=== PATIENT | male | born 1940 | race Caucasian/White ===

== ENCOUNTER 2017-02-07 16:36 | Emergency (ER) | payer MEDICARE, BC ==
[2017-02-07] MEDS ORDERED: HYDROMORPHONE 1 MG/ML SYRINGE IV PRN (16:51)
[2017-02-07] MEDS ORDERED: SODIUM CHLORIDE 0.9% 1000ML 1,000 ML IV SCH (17:00)
[2017-02-07] MEDS ORDERED: HYDROMORPHONE HCL 2 MG/ML SOL ONE (17:06)
[2017-02-07 17:21] LABS: ALBUMIN 3.2 gm/dl (3.4-5.0); CALCIUM 8.4 mg/dl (8.5-10.1); POTASSIUM 3.8 mMol/L (3.5-5.1)
[2017-02-07 17:22] LABS: BASOPHILS % (AUTO) 1 % (0-3); EOSINOPHILS % (AUTO) 2 % (0-9); HEMATOCRIT 36 % (39-53); MEAN CORPUSCULAR HGB CONC 34.6 gm/dl (32.0-36.0); MONOCYTES % (AUTO) 10.8 % (0-12); NEUTROPHILS % (AUTO) 72.8 % (37-80)
[2017-02-07 17:28] LABS: MEAN CORPUSCULAR VOLUME 104 fL (80-100)
[2017-02-07 17:35] LABS: ANISOCYTOSIS SLIGHT AMT
[2017-02-07] MEDS ORDERED: HYDROMORPHONE 1 MG/ML SYRINGE ONE (18:11)
[2017-02-07] MEDS ORDERED: HYDROMORPHONE HCL 2 MG/ML SOL IV ONE (18:11)
[2017-02-07 18:32] LABS: APPEARANCE,URINE Clear; BILIRUBIN,URINE NEGATIVE (NEGATIVE); COLOR,URINE Yellow; GLUCOSE, URINE (UA) NEGATIVE (NEGATIVE); KETONES,URINE NEGATIVE (NEGATIVE); LEUKOCYTE ESTERASE ,URINE NEGATIVE (NEGATIVE); NITRATE,URINE NEGATIVE (NEGATIVE); OCCULT BLOOD,URINE TRACE INTACT (NEG-TRACE); PH,URINE 5.5; UROBILINOGEN,URINE 0.2 (0.2-1.0 EU)
[2017-02-07 18:51] LABS: RBC,URINE 0-2 (0-3AV/HPF); WBC,URINE 0-1 (0-5AV/HPF)
[2017-02-07 18:54] VITALS: TEMP 99.9
[2017-02-07 20:42] VITALS: BP 130/78; PULSE 70; RESP 16; O2SAT 96
== END 2017-02-07 19:53 | disposition home or self-care (01) | DRG 552 ==
LOC: ED 16:36
DX: M54.9 Dorsalgia, unspecified (principal); I50.9 Heart failure, unspecified; I48.91 Unspecified atrial fibrillation; Z86.79 Personal history of other diseases of the circulatory system; Z98.890 Other specified postprocedural states
CPT/HCPCS: 71270; 74170; 80053; 81001; 85025; 85610; 85730; 96365; 96374; 99285; 99291; J1170; Q9967

== ENCOUNTER 2017-02-10 09:48 | Emergency (ER) | payer MEDICARE, BC ==
[2017-02-10 10:20] VITALS: RESP 16; TEMP 98.3
[2017-02-10 10:29] LABS: CALCIUM 8.1 mg/dl (8.5-10.1); POTASSIUM 3.9 mMol/L (3.5-5.1)
[2017-02-10] MEDS ORDERED: SODIUM CHLORIDE 0.9% 500 ML 500 ML IV ONE (11:01)
[2017-02-10 12:55] VITALS: BP 119/74; PULSE 74; O2SAT 99
== END 2017-02-10 11:35 | disposition home or self-care (01) | DRG 552 ==
LOC: ED 09:48
DX: M54.9 Dorsalgia, unspecified (principal); K59.00 Constipation, unspecified; Z98.890 Other specified postprocedural states
CPT/HCPCS: 36415; 80048; 96365; 99282; 99283

== ENCOUNTER 2017-02-12 20:18 | Observation (INO) | payer MEDICARE, BC ==
[2017-02-12] MEDS ORDERED: SODIUM CHLORIDE 0.9% 1000ML 1,000 ML IV ONE (20:43)
[2017-02-12] MEDS ORDERED: ONDANSETRON HCL 4 MG/2 ML 4 MG in SODIUM CHLORIDE 0.9% 100 ML 100 ML IV ONE (20:44)
[2017-02-12] MEDS: SODIUM CHLORIDE 0.9% FLUSH 10 ML SOL IV PRN (20:45)
[2017-02-12] MEDS ORDERED: ONDANSETRON HCL 4 MG/2 ML SOL ONE (20:50)
[2017-02-12] MEDS ORDERED: ONDANSETRON HCL 4 MG/2 ML SOL IV ONE (20:50)
[2017-02-12 20:52] LABS: BASOPHILS % (AUTO) 1 % (0-3); EOSINOPHILS % (AUTO) 2 % (0-9); HEMATOCRIT 32 % (39-53); MEAN CORPUSCULAR HGB CONC 37.3 gm/dl (32.0-36.0); MONOCYTES % (AUTO) 7.4 % (0-12); NEUTROPHILS % (AUTO) 85.1 % (37-80)
[2017-02-12 20:54] LABS: MEAN CORPUSCULAR VOLUME 101 fL (80-100)
[2017-02-12 21:00] LABS: NORMAL RBCS PRESENT
[2017-02-12 21:04] LABS: CALCIUM 8.8 mg/dl (8.5-10.1); POTASSIUM 3.8 mMol/L (3.5-5.1)
[2017-02-12] MEDS ORDERED: TRAMADOL HYDROCHLORIDE 50 MG TAB PO ONE (21:56)
[2017-02-12] MEDS ORDERED: TRAMADOL HYDROCHLORIDE 50 MG TAB ONE (21:57)
[2017-02-12] MEDS ORDERED: TEMAZEPAM 15MG 15 MG CAP PO PRN (22:03)
[2017-02-12] MEDS ORDERED: FLEET ENEMA PR PRN (22:05)
[2017-02-12] MEDS: SODIUM CHLORIDE 0.9% 1000ML 1,000 ML IV SCH (23:15)
[2017-02-13] MEDS ORDERED: PANTOPRAZOLE SODIUM 40 MG ECT PO PRN
[2017-02-13] MEDS: TRAMADOL HYDROCHLORIDE 50 MG TAB PO PRN ×3 (06:07→19:38)
[2017-02-13] MEDS ORDERED: MAGNESIUM CITRATE SOL PO ONE (09:00)
[2017-02-13] MEDS ORDERED: OMEPRAZOLE 20 MG CAPSULE PO PRN (09:00)
[2017-02-13] MEDS ORDERED: SENNOSIDES A AND B 8.6 MG TAB PO SCH (09:00)
[2017-02-13] MEDS: LISINOPRIL 5 MG TAB PO SCH (09:04)
[2017-02-13] MEDS: CHOLECALCIFEROL 1,000 IU TAB PO SCH (09:05)
[2017-02-13] MEDS: METOPROLOL TARTRATE 25 MG TAB PO SCH ×2 (09:05→20:48)
[2017-02-13] MEDS: PREDNISONE 5 MG TAB PO SCH (09:06)
[2017-02-13] MEDS: ASPIRIN 81 MG CHEWABLE CTB PO SCH (09:07)
[2017-02-13] MEDS: SODIUM CHLORIDE 0.9% 1000ML 1,000 ML IV SCH ×2 (09:20→19:43)
[2017-02-13] MEDS: SERTRALINE HYDROCHLORIDE 50 MG TAB PO SCH (09:59)
[2017-02-13] MEDS: SODIUM CHLORIDE 0.9% FLUSH 10 ML SOL IV PRN (18:09)
[2017-02-13] MEDS ORDERED: ACETAMINOPHEN 500 MG 500 MG TAB PO SCH (21:00)
[2017-02-14] MEDS: SODIUM CHLORIDE 0.9% 1000ML 1,000 ML IV SCH (04:59)
[2017-02-14] MEDS: TRAMADOL HYDROCHLORIDE 50 MG TAB PO PRN ×2 (06:46→12:36)
[2017-02-14] MEDS ORDERED: TEMAZEPAM 15MG 15 MG CAP PO ONE (07:00)
[2017-02-14] MEDS ORDERED: DIAZEPAM 5 MG TAB PO ONE (07:00)
[2017-02-14 07:14] LABS: CALCIUM 7.9 mg/dl (8.5-10.1); POTASSIUM 4.1 mMol/L (3.5-5.1)
[2017-02-14 07:45] VITALS: BP 140/68; RESP 38; TEMP 97.6
[2017-02-14] MEDS ORDERED: PATIENT EDUCATION 1 MISC PRN (08:18)
[2017-02-14] MEDS: METOPROLOL TARTRATE 25 MG TAB PO SCH (08:51)
[2017-02-14] MEDS: PREDNISONE 5 MG TAB PO SCH (08:52)
[2017-02-14] MEDS: ASPIRIN 81 MG CHEWABLE CTB PO SCH (08:52)
[2017-02-14] MEDS: CHOLECALCIFEROL 1,000 IU TAB PO SCH (08:52)
[2017-02-14] MEDS: LISINOPRIL 5 MG TAB PO SCH (08:53)
[2017-02-14] MEDS: SERTRALINE HYDROCHLORIDE 50 MG TAB PO SCH (08:53)
[2017-02-14] MEDS: SODIUM CHLORIDE 0.9% FLUSH 10 ML SOL IV PRN (08:57)
[2017-02-14 13:37] VITALS: PULSE 73; O2SAT 92
[2017-02-14] MEDS ORDERED: PNEUMOCOCCAL VACCINE 0.5 ML SOL IM ONE (16:26)
[2017-02-14] MEDS ORDERED: SODIUM CHLORIDE 0.9% FLUSH 10 ML SOL IV SCH (17:00)
== END 2017-02-14 17:20 | disposition home or self-care (01) | DRG 552 ==
LOC: ED 20:18 → ACUTE CARE 21:59
PROVIDERS: ADMIT Family Medicine; ATTEND Family Medicine
DX: S22.080A Wedge compression fracture of T11-T12 vertebra, initial encounter for closed fracture (principal); I50.9 Heart failure, unspecified; Z94.0 Kidney transplant status; K59.00 Constipation, unspecified; R09.02 Hypoxemia
CPT/HCPCS: 36415; 72148; 80048; 80053; 85025; 90732; 96365; 96374; 99218; 99285; J2405; A6232

== ENCOUNTER 2017-02-16 04:07 | Inpatient (IN) | payer MEDICARE, BC ==
[2017-02-16] MEDS ORDERED: SODIUM CHLORIDE 0.9% 1000ML 1,000 ML IV ONE (05:00)
[2017-02-16 05:06] LABS: BASOPHILS % (AUTO) 1 % (0-3); EOSINOPHILS % (AUTO) 3 % (0-9); HEMATOCRIT 27 % (39-53); MEAN CORPUSCULAR HGB CONC 36.5 gm/dl (32.0-36.0); NEUTROPHILS % (AUTO) 76.2 % (37-80)
[2017-02-16 05:17] LABS: APPEARANCE,URINE Slightly Cloudy; BILIRUBIN,URINE 1+ (NEGATIVE); COLOR,URINE Dark yellow; GLUCOSE, URINE (UA) NEGATIVE (NEGATIVE); KETONES,URINE NEGATIVE (NEGATIVE); LEUKOCYTE ESTERASE ,URINE NEGATIVE (NEGATIVE); NITRATE,URINE NEGATIVE (NEGATIVE); OCCULT BLOOD,URINE 3+ (NEG-TRACE); PH,URINE 5.5; UROBILINOGEN,URINE 0.2 (0.2-1.0 EU)
[2017-02-16 05:21] LABS: ALBUMIN 2.5 gm/dl (3.4-5.0); CALCIUM 8.2 mg/dl (8.5-10.1); POTASSIUM 3.9 mMol/L (3.5-5.1)
[2017-02-16 05:30] LABS: MEAN CORPUSCULAR VOLUME 102 fL (80-100)
[2017-02-16 05:32] LABS: ANISOCYTOSIS SLIGHT
[2017-02-16 05:34] LABS: ICTOTEST,URINE NEGATIVE (NEGATIVE)
[2017-02-16 05:35] LABS: RBC,URINE 60-65 (0-3AV/HPF); WBC,URINE 0-1 (0-5AV/HPF)
[2017-02-16] MEDS ORDERED: ENOXAPARIN 30 MG SOL SC SCH (06:30)
[2017-02-16] MEDS: SODIUM CHLORIDE 0.9% 1000ML 1,000 ML IV SCH (07:31)
[2017-02-16] MEDS: METOPROLOL TARTRATE 5 MG/5 ML SOL IV SCH ×3 (07:38→18:33)
[2017-02-16] MEDS: ASPIRIN 81 MG CHEWABLE CTB PO SCH (09:44)
[2017-02-16] MEDS: SERTRALINE HYDROCHLORIDE 50 MG TAB PO SCH (09:45)
[2017-02-16] MEDS: ENOXAPARIN 40 MG SOL SC SCH (09:45)
[2017-02-16] MEDS: ONDANSETRON HCL 4 MG/2 ML SOL IV PRN (11:02)
[2017-02-16] MEDS ORDERED: ACETAMINOPHEN 650 MG SUP PR PRN (11:48)
[2017-02-16] MEDS: TEMAZEPAM 15MG 15 MG CAP PO PRN (21:22)
[2017-02-17] MEDS: METOPROLOL TARTRATE 5 MG/5 ML SOL IV SCH ×4 (02:00→18:25)
[2017-02-17] MEDS: SODIUM CHLORIDE 0.9% 1000ML 1,000 ML IV SCH ×2 (02:33→22:33)
[2017-02-17] MEDS ORDERED: MAGNESIUM CITRATE SOL PO PRN (07:50)
[2017-02-17] MEDS: ASPIRIN 81 MG CHEWABLE CTB PO SCH (08:26)
[2017-02-17] MEDS: SERTRALINE HYDROCHLORIDE 50 MG TAB PO SCH (08:26)
[2017-02-17] MEDS: ENOXAPARIN 40 MG SOL SC SCH (08:26)
[2017-02-17] MEDS: PREDNISONE 5 MG TAB PO SCH (08:26)
[2017-02-17] MEDS ORDERED: ALBUTEROL NEB SOL 2.5MG/3ML 1 VIAL SOL NEB PRN (11:38)
[2017-02-18] MEDS: TEMAZEPAM 15MG 15 MG CAP PO PRN ×2 (00:20→21:37)
[2017-02-18] MEDS: METOPROLOL TARTRATE 5 MG/5 ML SOL IV SCH ×2 (00:20→06:31)
[2017-02-18] MEDS: ACETAMINOPHEN 325 MG PO PRN ×3 (00:49→21:34)
[2017-02-18 07:12] LABS: CALCIUM 8.6 mg/dl (8.5-10.1); POTASSIUM 4.3 mMol/L (3.5-5.1)
[2017-02-18] MEDS: SERTRALINE HYDROCHLORIDE 50 MG TAB PO SCH (09:01)
[2017-02-18] MEDS: ASPIRIN 81 MG CHEWABLE CTB PO SCH (09:01)
[2017-02-18] MEDS: PREDNISONE 5 MG TAB PO SCH (09:01)
[2017-02-18] MEDS: METOPROLOL TARTRATE 25 MG TAB PO SCH ×2 (09:43→21:34)
[2017-02-18] MEDS: APAP/HYDROCODONE 325/5 TAB PO PRN ×3 (09:43→19:05)
[2017-02-18] MEDS: LISINOPRIL 5 MG TAB PO SCH (09:43)
[2017-02-18] MEDS: ENOXAPARIN 40 MG SOL SC SCH (09:44)
[2017-02-19] MEDS: APAP/HYDROCODONE 325/5 TAB PO PRN ×5 (01:44→21:14)
[2017-02-19] MEDS: ACETAMINOPHEN 325 MG PO PRN ×2 (02:51→10:42)
[2017-02-19 07:41] LABS: ALBUMIN 2.2 gm/dl (3.4-5.0); CALCIUM 8.4 mg/dl (8.5-10.1); POTASSIUM 4.1 mMol/L (3.5-5.1)
[2017-02-19 08:04] LABS: BASOPHILS % (AUTO) 1 % (0-3); EOSINOPHILS % (AUTO) 1 % (0-9); HEMATOCRIT 31 % (39-53); MEAN CORPUSCULAR HGB CONC 32.8 gm/dl (32.0-36.0); MONOCYTES % (AUTO) 12.6 % (0-12); NEUTROPHILS % (AUTO) 75.7 % (37-80)
[2017-02-19 08:10] LABS: MEAN CORPUSCULAR VOLUME 110 fL (80-100)
[2017-02-19 08:43] LABS: ANISOCYTOSIS MOD AMT; OVALOCYTES PRESENT
[2017-02-19] MEDS: LISINOPRIL 5 MG TAB PO SCH (08:46)
[2017-02-19] MEDS: METOPROLOL TARTRATE 25 MG TAB PO SCH ×2 (08:46→21:14)
[2017-02-19] MEDS: ASPIRIN 81 MG CHEWABLE CTB PO SCH (08:46)
[2017-02-19] MEDS: SERTRALINE HYDROCHLORIDE 50 MG TAB PO SCH (08:46)
[2017-02-19] MEDS: PREDNISONE 5 MG TAB PO SCH (08:46)
[2017-02-19] MEDS: ONDANSETRON HCL 4 MG/2 ML SOL IV PRN (08:56)
[2017-02-19] MEDS: ENOXAPARIN 40 MG SOL SC SCH (08:56)
[2017-02-19 17:01] VITALS: TEMP 98.1
[2017-02-19] MEDS: TEMAZEPAM 15MG 15 MG CAP PO PRN (21:14)
[2017-02-20] MEDS: APAP/HYDROCODONE 325/5 TAB PO PRN ×3 (02:12→14:48)
[2017-02-20] MEDS: ACETAMINOPHEN 325 MG PO PRN (05:28)
[2017-02-20 06:40] VITALS: BP 118/67; PULSE 71; RESP 18; O2SAT 92
[2017-02-20] MEDS: METOPROLOL TARTRATE 25 MG TAB PO SCH (08:37)
[2017-02-20] MEDS: SERTRALINE HYDROCHLORIDE 50 MG TAB PO SCH (08:38)
[2017-02-20] MEDS: ASPIRIN 81 MG CHEWABLE CTB PO SCH (08:38)
[2017-02-20] MEDS: LISINOPRIL 5 MG TAB PO SCH (08:38)
[2017-02-20] MEDS: PREDNISONE 5 MG TAB PO SCH (08:38)
[2017-02-20] MEDS: ENOXAPARIN 40 MG SOL SC SCH (08:49)
== END 2017-02-20 15:05 | disposition home or self-care (01) | DRG 389 ==
LOC: ED 04:07 → ACUTE CARE 06:06
PROVIDERS: ADMIT Family Medicine; ATTEND Family Medicine
DX: K56.7 Ileus, unspecified (principal); I50.42 Chronic combined systolic (congestive) and diastolic (congestive) heart failure; Z94.0 Kidney transplant status; Z79.899 Other long term (current) drug therapy; R06.02 Shortness of breath; S22.080D Wedge compression fracture of T11-T12 vertebra, subsequent encounter for fracture with routine healing; Z98.890 Other specified postprocedural states
CPT/HCPCS: 36415; 71010; 74000; 74020; 80048; 80053; 81001; 85025; 94150; 94760; 96365; 99222; 99284; J1650; J2405

== ENCOUNTER 2017-02-21 09:20 | Inpatient (IN) | payer MEDICARE, BC ==
[2017-02-21] MEDS ORDERED: SODIUM CHLORIDE 0.9% 1000ML 1,000 ML IV ONE (09:45)
[2017-02-21] MEDS ORDERED: METOPROLOL TARTRATE 25 MG TAB PO ONE (10:50)
[2017-02-21] MEDS ORDERED: PREDNISONE 5 MG TAB PO ONE (10:50)
[2017-02-21] MEDS ORDERED: METOPROLOL TARTRATE 25 MG TAB ONE (10:54)
[2017-02-21] MEDS ORDERED: PREDNISONE 5 MG TAB ONE (10:54)
[2017-02-21] MEDS ORDERED: SERTRALINE HYDROCHLORIDE 50 MG TAB ONE (10:56)
[2017-02-21] MEDS ORDERED: LISINOPRIL 5 MG TAB ONE (10:56)
[2017-02-21] MEDS ORDERED: LISINOPRIL 5 MG TAB PO ONE (11:00)
[2017-02-21] MEDS ORDERED: SERTRALINE HYDROCHLORIDE 50 MG TAB PO ONE (11:00)
[2017-02-21] MEDS ORDERED: APAP/HYDROCODONE 325/5 TAB ONE (14:52)
[2017-02-21] MEDS ORDERED: APAP/HYDROCODONE 325/5 TAB PO ONE (15:00)
[2017-02-21] MEDS ORDERED: OMEPRAZOLE 20 MG CAPSULE PO PRN (17:55)
[2017-02-21] MEDS: APAP/HYDROCODONE 325/5 TAB PO PRN (19:59)
[2017-02-21] MEDS: SENNOSIDES A AND B 8.6 MG TAB PO SCH (19:59)
[2017-02-21] MEDS: METOPROLOL TARTRATE 25 MG TAB PO SCH (19:59)
[2017-02-21] MEDS: ACETAMINOPHEN 500 MG 500 MG TAB PO SCH (20:00)
[2017-02-21] MEDS: SODIUM CHLORIDE 0.9% FLUSH 10 ML SOL IV SCH (22:00)
[2017-02-21] MEDS ORDERED: ONDANSETRON HCL 4 MG/2 ML SOL IV PRN (22:19)
[2017-02-21] MEDS: TEMAZEPAM 15MG 15 MG CAP PO PRN (22:43)
[2017-02-22] MEDS: APAP/HYDROCODONE 325/5 TAB PO PRN ×4 (02:14→20:30)
[2017-02-22] MEDS: SODIUM CHLORIDE 0.9% FLUSH 10 ML SOL IV SCH ×3 (06:05→22:00)
[2017-02-22] MEDS: METOPROLOL TARTRATE 25 MG TAB PO SCH ×2 (09:31→20:30)
[2017-02-22] MEDS: SERTRALINE HYDROCHLORIDE 50 MG TAB PO SCH (09:31)
[2017-02-22] MEDS: PREDNISONE 5 MG TAB PO SCH (09:31)
[2017-02-22] MEDS: LISINOPRIL 5 MG TAB PO SCH (09:31)
[2017-02-22] MEDS: ASPIRIN 81 MG CHEWABLE CTB PO SCH (09:31)
[2017-02-22] MEDS: SENNOSIDES A AND B 8.6 MG TAB PO SCH ×2 (09:31→20:30)
[2017-02-22] MEDS: CHOLECALCIFEROL 1,000 IU TAB PO SCH (09:32)
[2017-02-22] MEDS: ACETAMINOPHEN 500 MG 500 MG TAB PO SCH (20:30)
[2017-02-22] MEDS: TEMAZEPAM 15MG 15 MG CAP PO PRN (20:46)
[2017-02-23] MEDS: APAP/HYDROCODONE 325/5 TAB PO PRN ×3 (02:31→20:47)
[2017-02-23] MEDS: SODIUM CHLORIDE 0.9% FLUSH 10 ML SOL IV SCH ×3 (06:29→21:17)
[2017-02-23] MEDS ORDERED: OXYCODONE HYDROCHLORIDE 5 MG TAB PO ONE (06:46)
[2017-02-23] MEDS: LISINOPRIL 5 MG TAB PO SCH (08:39)
[2017-02-23] MEDS: PREDNISONE 5 MG TAB PO SCH (08:39)
[2017-02-23] MEDS: ASPIRIN 81 MG CHEWABLE CTB PO SCH (08:39)
[2017-02-23] MEDS: CHOLECALCIFEROL 1,000 IU TAB PO SCH (08:40)
[2017-02-23] MEDS: SERTRALINE HYDROCHLORIDE 50 MG TAB PO SCH (08:40)
[2017-02-23] MEDS: METOPROLOL TARTRATE 25 MG TAB PO SCH ×2 (08:44→20:45)
[2017-02-23] MEDS: SENNOSIDES A AND B 8.6 MG TAB PO SCH ×2 (08:44→20:45)
[2017-02-23] MEDS ORDERED: FENTANYL 25 MCG PATCH TDM TD SCH (11:45)
[2017-02-23] MEDS ORDERED: PANTOPRAZOLE SODIUM 40 MG ECT PO PRN (13:16)
[2017-02-23] MEDS: PREDNISONE 20 MG TAB PO SCH (13:28)
[2017-02-23 15:41] VITALS: RESP 20
[2017-02-23] MEDS: ACETAMINOPHEN 500 MG 500 MG TAB PO SCH (20:44)
[2017-02-24] MEDS: TEMAZEPAM 15MG 15 MG CAP PO PRN (01:03)
[2017-02-24] MEDS: SODIUM CHLORIDE 0.9% FLUSH 10 ML SOL IV SCH (05:58)
[2017-02-24] MEDS: METOPROLOL TARTRATE 25 MG TAB PO SCH (08:29)
[2017-02-24] MEDS: SENNOSIDES A AND B 8.6 MG TAB PO SCH (08:29)
[2017-02-24] MEDS: ASPIRIN 81 MG CHEWABLE CTB PO SCH (08:29)
[2017-02-24] MEDS: PREDNISONE 5 MG TAB PO SCH (08:29)
[2017-02-24] MEDS: PREDNISONE 20 MG TAB PO SCH (08:29)
[2017-02-24] MEDS: SERTRALINE HYDROCHLORIDE 50 MG TAB PO SCH (08:30)
[2017-02-24] MEDS: LISINOPRIL 5 MG TAB PO SCH (08:30)
[2017-02-24] MEDS: CHOLECALCIFEROL 1,000 IU TAB PO SCH (08:30)
[2017-02-24] MEDS: APAP/HYDROCODONE 325/5 TAB PO PRN ×2 (08:30→13:00)
[2017-02-24 08:48] VITALS: PULSE 71; TEMP 97
[2017-02-24] MEDS ORDERED: LIDOCAINE 5% PATCH 1 PATCH TDM TOP SCH (09:00)
[2017-02-24 14:07] VITALS: BP 130/70; O2SAT 94
== END 2017-02-24 14:55 | DRG 195 ==
LOC: ED 09:20 → UNDOADMIN 13:55 → ACUTE CARE 13:55
PROVIDERS: ADMIT Family Medicine; ATTEND Family Medicine
DX: J18.9 Pneumonia, unspecified organism (principal); R53.1 Weakness; S22.080D Wedge compression fracture of T11-T12 vertebra, subsequent encounter for fracture with routine healing
CPT/HCPCS: 36415; 71020; 74000; 85018; 96365; 99222; 99231; 99284; J2405

== ENCOUNTER 2017-03-11 10:42 | Emergency (ER) | payer MEDICARE, BC ==
[2017-03-11] MEDS ORDERED: SODIUM CHLORIDE 0.9% 1000ML 1,000 ML IV ONE (11:00)
[2017-03-11] MEDS ORDERED: ONDANSETRON HCL 4 MG/2 ML SOL IV ONE (11:00)
[2017-03-11] MEDS ORDERED: FENTANYL 100MCG/2ML SOL IV ONE (11:00)
[2017-03-11] MEDS ORDERED: ONDANSETRON HCL 4 MG/2 ML SOL ONE (11:02)
[2017-03-11] MEDS ORDERED: FENTANYL 100MCG/2ML SOL ONE (11:02)
[2017-03-11 11:22] LABS: HEMATOCRIT 38 % (39-53); MEAN CORPUSCULAR HGB CONC 32.2 gm/dl (32.0-36.0)
[2017-03-11 11:23] VITALS: RESP 20; TEMP 97.8
[2017-03-11 11:25] LABS: MEAN CORPUSCULAR VOLUME 106 fL (80-100)
[2017-03-11 11:36] LABS: BASOPHILS % (MANUAL) 1 % (0-3); EOSINOPHILS % (MANUAL) 1 % (0-9); LYMPHOCYTES % (MANUAL) 14 % (10-50)
[2017-03-11 11:37] LABS: ANISOCYTOSIS SLIGHT AMT
[2017-03-11 11:42] VITALS: BP 121/72; PULSE 66; O2SAT 100
[2017-03-11 11:42] LABS: ALBUMIN 3.2 gm/dl (3.4-5.0); CALCIUM 8.9 mg/dl (8.5-10.1); POTASSIUM 3.9 mMol/L (3.5-5.1)
[2017-03-11] MEDS ORDERED: HYDROMORPHONE 1 MG/ML SYRINGE IV ONE (11:50)
[2017-03-11] MEDS ORDERED: HYDROMORPHONE 1 MG/ML SYRINGE ONE (11:51)
== END 2017-03-11 14:00 | disposition home or self-care (01) | DRG 392 ==
LOC: ED 10:42
DX: R10.13 Epigastric pain (principal); R11.2 Nausea with vomiting, unspecified
CPT/HCPCS: 36415; 74020; 80053; 85007; 85027; 99284; J2405; J3010; J1170

== ENCOUNTER 2017-04-02 09:57 | Day surgery (SDC) | payer MEDICARE, BC ==
[2017-04-02] MEDS ORDERED: PROPOFOL 500 MG/50 ML EMU IV ONE (10:39)
[2017-04-02] MEDS ORDERED: LIDOCAINE HCL 1% MPF SOL ONE (11:36)
[2017-04-02 12:52] VITALS: PULSE 62; O2SAT 96
[2017-04-02 13:17] VITALS: BP 115/78; RESP 94; TEMP 97.1
== END 2017-04-02 13:45 | disposition home or self-care (01) | DRG 392 ==
LOC: SURG 09:57
PROVIDERS: ATTEND Surgery
DX: R10.13 Epigastric pain (principal); D12.2 Benign neoplasm of ascending colon; K59.00 Constipation, unspecified; R63.4 Abnormal weight loss; K57.30 Diverticulosis of large intestine without perforation or abscess without bleeding
CPT/HCPCS: J2001; J2704

== ENCOUNTER → 2017-06-04 | Day surgery (SDC) | payer MEDICARE, BC ==
[2017-04-02 12:52] VITALS: O2SAT 96
[~2017-06-04] MED LIST: BUPIVACAINE HCL 0.25% MPF 10 ML SOL INFIL ONE; TRIAMCINOLONE ACETONIDE 40 MG/ML SUS ONE
[2017-06-04 11:58] VITALS: TEMP 98.3
[2017-06-04 13:13] VITALS: BP 131/85; PULSE 81; RESP 24
== END | disposition home or self-care (01) | DRG 951 ==
LOC: SURG 11:37
PROVIDERS: ATTEND Nurse Anesthetist, Certified Registered
DX: Z53.9 Procedure and treatment not carried out, unspecified reason (principal)
CPT/HCPCS: J3300

== ENCOUNTER 2017-06-11 10:45 | Day surgery (SDC) | payer MEDICARE, BC ==
[2017-06-11] MEDS ORDERED: DIAZEPAM 5 MG TAB ONE (11:04)
[2017-06-11] MEDS ORDERED: TRIAMCINOLONE ACETONIDE 40 MG/ML SUS ONE (11:21)
[2017-06-11] MEDS ORDERED: BUPIVACAINE HCL 0.25% MPF 10 ML SOL INFIL ONE (11:21)
[2017-06-11] MEDS ORDERED: SODIUM CHLORIDE 0.9% FLUSH 10 ML SOL IV ONE (11:25)
[2017-06-11 12:02] VITALS: BP 121/77; PULSE 54; RESP 20; TEMP 97.4; O2SAT 97
== END 2017-06-11 12:20 | disposition home or self-care (01) | DRG 552 ==
LOC: SURG 10:45
PROVIDERS: ATTEND Nurse Anesthetist, Certified Registered
DX: M48.062 Spinal stenosis, lumbar region with neurogenic claudication (principal)
CPT/HCPCS: J3300

== ENCOUNTER 2017-07-30 14:08 | Day surgery (SDC) | payer MEDICARE, BC ==
[2017-07-30 14:53] VITALS: BP 118/71; PULSE 57; RESP 16; TEMP 96.6; O2SAT 99
== END 2017-07-30 15:10 | disposition home or self-care (01) | DRG 552 ==
LOC: SURG 14:08
PROVIDERS: ATTEND Nurse Anesthetist, Certified Registered
DX: M48.062 Spinal stenosis, lumbar region with neurogenic claudication (principal)

== ENCOUNTER 2017-08-14 10:33 | Day surgery (SDC) | payer MEDICARE, BC ==
[2017-08-14 11:08] VITALS: RESP 16; TEMP 97.6
[2017-08-14] MEDS ORDERED: DIAZEPAM 5 MG TAB ONE (11:19)
[2017-08-14] MEDS ORDERED: DEXAMETHASONE SOD PHOS PF 10 MG/ML SOL IJ ONE (11:49)
[2017-08-14] MEDS ORDERED: BUPIVACAINE HCL 0.25% MPF 10 ML SOL INFIL ONE (11:49)
[2017-08-14 12:16] VITALS: BP 103/73; PULSE 53; O2SAT 94
== END 2017-08-14 12:35 | disposition home or self-care (01) | DRG 552 ==
LOC: SURG 10:33
PROVIDERS: ATTEND Nurse Anesthetist, Certified Registered
DX: M54.5 Low back pain (principal); M54.16 Radiculopathy, lumbar region
CPT/HCPCS: A9270-GY; J1100

== ENCOUNTER 2017-09-19 20:43 | Emergency (ER) | payer MEDICARE, BC ==
[2017-09-19 21:17] VITALS: BP 142/91; PULSE 62; RESP 20; TEMP 97.7; O2SAT 96
[2017-09-19] MEDS ORDERED: ALPRAZOLAM 0.25 MG TAB ONE (22:43)
[2017-09-19] MEDS ORDERED: ALPRAZOLAM 0.25 MG TAB PO SCH (22:45)
== END 2017-09-19 22:49 | disposition home or self-care (01) | DRG 204 ==
LOC: ED 20:43
DX: R06.02 Shortness of breath (principal); F41.9 Anxiety disorder, unspecified; T40.2X5A Adverse effect of other opioids, initial encounter; R45.1 Restlessness and agitation
CPT/HCPCS: 99282; A9270-GY

== ENCOUNTER 2018-05-28 11:11 | Inpatient (IN) | payer MEDICARE, BC ==
[2018-05-28 11:41] LABS: BASOPHILS % (AUTO) 1 % (0-3); EOSINOPHILS % (AUTO) 1 % (0-9); HEMATOCRIT 38 % (39-53); LYMPHOCYTES % (AUTO) 6.1 % (10-50); MEAN CORPUSCULAR HEMOGLOBIN 33.4 pg (27.0-32.0); MEAN CORPUSCULAR HGB CONC 31.5 gm/dl (32.0-36.0); NEUTROPHILS % (AUTO) 87.9 % (37-80)
[2018-05-28 11:42] LABS: MEAN CORPUSCULAR VOLUME 106 fL (80-100)
[2018-05-28 11:47] LABS: INR 1.07 (0.86-1.12)
[2018-05-28 11:54] LABS: ALBUMIN 3.8 gm/dl (3.4-5.0); ALKALINE PHOSPHATASE 90 IU/L (46-116); ALT 27 IU/L (14-63); AST 35 IU/L (15-37); BLOOD UREA NITROGEN 30 mg/dl (7-18); CALCIUM 8.6 mg/dl (8.5-10.1); CARBON DIOXIDE 28.1 mEq/L (21-32); CHLORIDE 103 mMol/L (98-107); CREATININE 1.26 mg/dl (0.80-1.30); GLUCOSE 107 mg/dl (74-106); SODIUM 139 mMol/L (136-145); TOTAL PROTEIN 6.9 gm/dl (6.4-8.2); TROP I < 0.017 ng/ml (0.000-0.056)
[2018-05-28] MEDS ORDERED: TEMAZEPAM 15MG 15 MG CAP PO PRN (15:42)
[2018-05-28] MEDS: FUROSEMIDE 40 MG SOL IV SCH ×2 (17:04→20:26)
[2018-05-28] MEDS ORDERED: ACETAMINOPHEN 325 MG PO PRN (17:42)
[2018-05-28] MEDS ORDERED: CEFTRIAXONE 1 GM (PREMIX) 1 GM/50 ML SOL IV SCH (17:45)
[2018-05-28] MEDS ORDERED: ALBUTEROL/IPRATROPIUM 1 VIAL SOL INH SCH (17:45)
[2018-05-28] MEDS ORDERED: CEFTRIAXONE 1 GM PDS ONE (18:49)
[2018-05-28] MEDS: AZITHROMYCIN 250 MG TAB PO SCH (19:14)
[2018-05-28] MEDS: CEFTRIAXONE 1 GM PDS 1 GM in SODIUM CHLORIDE 0.9% 50 ML 50 ML IV SCH (19:15)
[2018-05-28] MEDS: ALBUTEROL/IPRATROPIUM 1 VIAL SOL INH SCH (20:26)
[2018-05-28] MEDS: ACETAMINOPHEN 500 MG 500 MG TAB PO SCH (20:26)
[2018-05-28] MEDS: METOPROLOL SUCCINATE 50 MG TER PO SCH (20:26)
[2018-05-28] MEDS: ENOXAPARIN 30 MG SOL SC SCH (20:27)
[2018-05-29] MEDS ORDERED: LIDOCAINE HCL 2% GEL TOP ONE ×3 (03:43→04:16)
[2018-05-29] MEDS: SODIUM CHLORIDE 0.9% FLUSH 10 ML SOL IV PRN ×2 (03:54→15:36)
[2018-05-29 07:18] LABS: BASOPHILS % (AUTO) 1 % (0-3); EOSINOPHILS % (AUTO) 1 % (0-9); HEMATOCRIT 40 % (39-53); HEMOGLOBIN 12.6 gm/dl (13.5-17.7); MEAN CORPUSCULAR HGB CONC 31.5 gm/dl (32.0-36.0); MONOCYTES % (AUTO) 9.4 % (0-12); NEUTROPHILS % (AUTO) 77.5 % (37-80)
[2018-05-29 07:22] LABS: MEAN CORPUSCULAR VOLUME 105 fL (80-100)
[2018-05-29 07:30] LABS: CALCIUM 9.1 mg/dl (8.5-10.1); CARBON DIOXIDE 28.1 mEq/L (21-32); CREATININE 1.37 mg/dl (0.80-1.30); POTASSIUM 3.7 mMol/L (3.5-5.1)
[2018-05-29] MEDS ORDERED: PANTOPRAZOLE SODIUM 40 MG ECT PO PRN (09:00)
[2018-05-29] MEDS ORDERED: ENOXAPARIN 30 MG SOL SC SCH (09:00)
[2018-05-29] MEDS: METOPROLOL SUCCINATE 50 MG TER PO SCH ×2 (09:52→20:54)
[2018-05-29] MEDS: SERTRALINE HYDROCHLORIDE 50 MG TAB PO SCH (09:52)
[2018-05-29] MEDS: PREDNISONE 5 MG TAB PO SCH (09:52)
[2018-05-29] MEDS: LISINOPRIL 5 MG TAB PO SCH (09:52)
[2018-05-29] MEDS: FUROSEMIDE 40 MG SOL IV SCH ×2 (09:52→15:36)
[2018-05-29] MEDS: SODIUM CHLORIDE 0.9% FLUSH 10 ML SOL IV SCH ×3 (10:03→19:53)
[2018-05-29] MEDS ORDERED: LORAZEPAM 2 MG/ML 10ML MDV 2 MG/ML VIAL IV ONE (10:19)
[2018-05-29] MEDS ORDERED: LORAZEPAM 2 MG/ML SOL IV ONE (10:30)
[2018-05-29] MEDS: ALBUTEROL/IPRATROPIUM 1 VIAL SOL INH SCH ×4 (10:30→20:53)
[2018-05-29] MEDS: AZITHROMYCIN 250 MG TAB PO SCH (19:27)
[2018-05-29] MEDS ORDERED: SODIUM CHLORIDE 0.9% 50 ML 50 ML IV ONE (19:41)
[2018-05-29] MEDS ORDERED: CEFTRIAXONE 1 GM PDS ONE (19:41)
[2018-05-29] MEDS: CEFTRIAXONE 1 GM PDS 1 GM in SODIUM CHLORIDE 0.9% 50 ML 50 ML IV SCH (19:51)
[2018-05-29] MEDS ORDERED: DIAZEPAM 5 MG TAB PO ONE (20:04)
[2018-05-29] MEDS: ENOXAPARIN 30 MG SOL SC SCH (20:57)
[2018-05-29] MEDS: ACETAMINOPHEN 500 MG 500 MG TAB PO SCH (21:00)
[2018-05-30] MEDS: SODIUM CHLORIDE 0.9% FLUSH 10 ML SOL IV SCH ×3 (06:16→20:09)
[2018-05-30 07:53] LABS: CALCIUM 9.3 mg/dl (8.5-10.1); CARBON DIOXIDE 29.1 mEq/L (21-32); CREATININE 1.58 mg/dl (0.80-1.30); POTASSIUM 3.8 mMol/L (3.5-5.1)
[2018-05-30 08:03] LABS: BASOPHILS % (AUTO) 1 % (0-3); EOSINOPHILS % (AUTO) 1 % (0-9); HEMATOCRIT 42 % (39-53); HEMOGLOBIN 13.3 gm/dl (13.5-17.7); LYMPHOCYTES % (AUTO) 11.5 % (10-50); MEAN CORPUSCULAR HEMOGLOBIN 33.5 pg (27.0-32.0); MEAN CORPUSCULAR HGB CONC 31.7 gm/dl (32.0-36.0); MONOCYTES % (AUTO) 9.5 % (0-12); NEUTROPHILS % (AUTO) 76.6 % (37-80)
[2018-05-30 08:07] LABS: MEAN CORPUSCULAR VOLUME 106 fL (80-100)
[2018-05-30] MEDS: LISINOPRIL 5 MG TAB PO SCH (08:26)
[2018-05-30] MEDS: FUROSEMIDE 40 MG SOL IV SCH (08:29)
[2018-05-30] MEDS: METOPROLOL SUCCINATE 50 MG TER PO SCH ×2 (08:30→20:08)
[2018-05-30] MEDS: PREDNISONE 5 MG TAB PO SCH (08:30)
[2018-05-30] MEDS: SERTRALINE HYDROCHLORIDE 50 MG TAB PO SCH (08:31)
[2018-05-30] MEDS: ALBUTEROL/IPRATROPIUM 1 VIAL SOL INH SCH ×4 (08:32→20:04)
[2018-05-30] MEDS: SODIUM CHLORIDE 0.9% FLUSH 10 ML SOL IV PRN (08:35)
[2018-05-30] MEDS: FUROSEMIDE 20 MG TAB PO SCH (12:06)
[2018-05-30] MEDS: AZITHROMYCIN 250 MG TAB PO SCH (18:35)
[2018-05-30] MEDS ORDERED: SODIUM CHLORIDE 0.9% 50 ML 50 ML IV ONE (19:59)
[2018-05-30] MEDS ORDERED: CEFTRIAXONE 1 GM PDS ONE (19:59)
[2018-05-30] MEDS: CEFTRIAXONE 1 GM PDS 1 GM in SODIUM CHLORIDE 0.9% 50 ML 50 ML IV SCH (20:03)
[2018-05-30] MEDS: ENOXAPARIN 30 MG SOL SC SCH (20:05)
[2018-05-30] MEDS: ACETAMINOPHEN 500 MG 500 MG TAB PO SCH (20:09)
[2018-05-30] MEDS ORDERED: TAMSULOSIN HYDROCHLORIDE 0.4 MG CAP PO SCH (21:00)
[2018-05-31] MEDS: SODIUM CHLORIDE 0.9% FLUSH 10 ML SOL IV SCH (07:00)
[2018-05-31 08:15] LABS: BASOPHILS % (AUTO) 1 % (0-3); EOSINOPHILS % (AUTO) 2 % (0-9); HEMATOCRIT 39 % (39-53); HEMOGLOBIN 12.3 gm/dl (13.5-17.7); MEAN CORPUSCULAR HEMOGLOBIN 32.8 pg (27.0-32.0); MEAN CORPUSCULAR HGB CONC 31.3 gm/dl (32.0-36.0); MONOCYTES % (AUTO) 9.1 % (0-12); NEUTROPHILS % (AUTO) 72.5 % (37-80)
[2018-05-31 08:17] LABS: MEAN CORPUSCULAR VOLUME 105 fL (80-100)
[2018-05-31 08:33] LABS: ALBUMIN 3.5 gm/dl (3.4-5.0); BILIRUBIN,TOTAL 0.6 mg/dl (0.2-1.0); CARBON DIOXIDE 28.1 mEq/L (21-32); CREATININE 1.93 mg/dl (0.80-1.30); TOTAL PROTEIN 6.7 gm/dl (6.4-8.2)
[2018-05-31] MEDS: ALBUTEROL/IPRATROPIUM 1 VIAL SOL INH SCH (08:37)
[2018-05-31] MEDS: METOPROLOL SUCCINATE 50 MG TER PO SCH (08:40)
[2018-05-31] MEDS: SERTRALINE HYDROCHLORIDE 50 MG TAB PO SCH (08:40)
[2018-05-31] MEDS: PREDNISONE 5 MG TAB PO SCH (08:41)
[2018-05-31] MEDS: LISINOPRIL 5 MG TAB PO SCH (08:42)
[2018-05-31] MEDS: FUROSEMIDE 20 MG TAB PO SCH (08:45)
[2018-05-31 08:47] VITALS: PULSE 70; RESP 16; O2SAT 100
[2018-05-31] MEDS ORDERED: PNEUMOC 13-VAL CONJ-DIP CRM/PF 0.5 ML SYRINGE IM ONE (10:07)
[2018-05-31 11:13] VITALS: BP 90/61; TEMP 97.5
== END 2018-05-31 11:35 | disposition home or self-care (01) | DRG 291 ==
LOC: ED 11:11 → ACUTE CARE 13:43 → UNDOADMIN 13:43 → ACUTE CARE 14:15
PROVIDERS: ADMIT Family Medicine; ATTEND Family Medicine
DX: I50.9 Heart failure, unspecified (principal); I50.42 Chronic combined systolic (congestive) and diastolic (congestive) heart failure; J18.9 Pneumonia, unspecified organism; R20.2 Paresthesia of skin; Z94.0 Kidney transplant status; R06.02 Shortness of breath; I44.7 Left bundle-branch block, unspecified; I71.2 Thoracic aortic aneurysm, without rupture; I25.10 Atherosclerotic heart disease of native coronary artery without angina pectoris; Z86.711 Personal history of pulmonary embolism; R33.9 Retention of urine, unspecified; R79.1 Abnormal coagulation profile; I48.91 Unspecified atrial fibrillation; N18.3 Chronic kidney disease, stage 3 (moderate)
CPT/HCPCS: 36415; 51798; 71046; 71275; 80048; 80053; 83880; 84484; 85025; 85378; 85610; 87040; 90670; 93005; 93012; 94150; 94640; 99284; J0696; J1940; Q9967; A9270-GY; G0008; J1650